=== PATIENT | female | born 1975 | race Caucasian/White ===

== ENCOUNTER 2017-04-01 15:34 | Emergency (ER) | payer OTHER ==
[~2017-04-01 15:34] MED LIST: ALLEGRA PO; AMBIEN PO; BACLOFEN10 MG PO; CYANOCOBAL1000 MCG/M INJ; EFFEXOR PO; EXALGO16 MG PO; FLONASE16 GM; GABAPENTIN300 M2 PO; OXYCODONE HCL30 MG PO; PHENERGAN PO; PHENERGAN25 M1 PO; SEROQUEL50 M1 PO; SERTRALINE HCL100 M1 PO; ULTRAM PO; XANAX2 MG PO
[2017-04-01 17:02] LABS: BASOPHIL% 0.4 % (0-2.5); DIFF IND NO; EOSINOPHIL% 0.1 % (0.0-7.0); HEMATOCRIT 27.3 % (35.0-45.0); HEMOGLOBIN 8.1 gm/dL (12.0-16.0); LYMPHOCYTE# 1.4 X10e3 (1.0-3.5); LYMPHOCYTE% 21.7 % (17.0-45.0); MEAN CELL VOLUME 64.6 FL (83-96); MEAN CORPUSCULAR HEMOGLOBIN 19.3 PG (28-34); MEAN CORPUSCULAR HGB CONC 29.8 g/dL (30-36); MEAN PLATELET VOLUME 8.6 FL (6.5-11.5); MONOCYTE# 0.4 X10e3 (0-1.0); NEUTROPHIL# 4.7 X10e3 (1.5-7.1); NEUTROPHIL% 71.8 % (40-75); PLATELET COUNT 252 X10e3 (140-420); RED BLOOD COUNT 4.22 X10e (3.90-5.30); RED CELL DISTRIBUTION WIDTH 18.6 % (11.0-15.5); WHITE BLOOD COUNT 6.6 X10e3 (4.0-10.5)
[2017-04-01 17:21] LABS: ALBUMIN SERUM 4.5 g/dL (3.5-5.0); ALKALINE PHOSPHATASE 83 U/L (32-92); ALT (SGPT) 17 U/L (10-40); AST (SGOT) 26 U/L (10-42); BILIRUBIN, DIRECT 0.1 mg/dL (0.0-0.2); BILIRUBIN,INDIRECT 0.3 mg/dL (0.0-0.9); BILIRUBIN,TOTAL 0.4 mg/dL (0.2-2.0); BLOOD UREA NITROGEN 15 mg/dL (9-23); BUN/CREATININE RATIO 16.66; CALCIUM SERUM 9.2 mg/dL (8.4-10.2); CARBON DIOXIDE 23 mmol/L (22-31); CHLORIDE 103 mmol/L (100-111); CREATININE SERUM 0.9 mg/dL (0.6-1.4); GLUCOSE FASTING 87 mg/dL (70-110); POTASSIUM 4.1 mmol/L (3.5-5.1); PROTEIN TOTAL SERUM 8.9 g/dL (6.0-8.3); SODIUM 136 mmol/L (135-145)
[2017-04-01 17:23] LABS: ACETAMINOPHEN <10 ug/mL
[2017-04-01 17:23] LABS: PARTIAL THROMBOPLASTIN TIME 20.1 SECONDS (25.6-38.1)
[2017-04-01 17:50] LABS: INR 1.1; PROTHROMBIN TIME (PATIENT) 12.5 SECONDS (9.5-12.4)
[2017-04-04 12:58] LABS: HA AB IGM (HEPPAN) Nonreactive (()); HB CORE AB IGM (HEPPAN) Nonreactive (Nonreactive); HB S AG (HEPPAN) Nonreactive (Nonreactive); HEP C AB (HEPPAN) Nonreactive (Nonreactive); HEP C AB SIGNAL TO CUTOFF 0.05 ratio (<1.00)
== END 2017-04-01 18:46 | disposition home or self-care (01) ==
LOC: SED 15:34
PROVIDERS: Emergency Medicine
DX: D50.9 Iron deficiency anemia, unspecified (principal); I10 Essential (primary) hypertension; F41.9 Anxiety disorder, unspecified; F17.210 Nicotine dependence, cigarettes, uncomplicated; Z79.899 Other long term (current) drug therapy
CPT/HCPCS: 36415; 80048; 80074; 80076; 84703; 85025; 85610; 85730; 96360; 99283; G0480